=== PATIENT | male | born 1985 | race Caucasian/White ===

== ENCOUNTER 2023-03-14 04:00 | Emergency (ER) | payer MEDICAID ==
[~2023-03-14] VITALS: Ht 167.6 cm; Wt 79.4 kg
[2023-03-14 04:10] VITALS: BP_SYST 130; PULSE 92; RESP 17; TEMP 97.5; O2SAT 99
--- NOTE | 2023-03-14 04:14 | NUR ---
LEFT UPPER GUMLINE SWELLING X1 DAY, LEFT CHEEK SWELLING 10/10
--- NOTE | 2023-03-14 04:15 | NUR ---
PT BIB SELF FROM HOME, AMBULATED TO BED 7. PT A&Ox4, ABLE TO MAKE NEEDS KNOWN. PT C/O TOOTHACHE ON LEFT UPPER JAW WITH FACIAL SWELLING. PT RATES PAIN 10/10. PT STATES TAKING MOTRIN FOR PAIN. PT DENIES N/V/D, SOB/CP, AND FEVER/CHILLS. SAFETY PRECAUTIONS IN PLACE.
--- NOTE | 2023-03-14 04:16 | NUR ---
PATIENT PLACED IN ED BED 7, REPORT GIVEN TO JER HEATH
--- NOTE | 2023-03-14 04:30 | NUR ---
ER Dr. MURRAY at bedside examining patient.
[2023-03-14] MEDS ORDERED: IBUP-1969 PO (04:49)
[2023-03-14] MEDS ORDERED: AUG875 PO (04:49)
[2023-03-14 05:08] VITALS: BP_SYST 131; PULSE 90; RESP 17; TEMP 97.5; O2SAT 99
--- NOTE | 2023-03-14 05:11 | NUR ---
Patient given written and verbal discharge instructions and verbalizes understanding. ER MD discussed with patient the results and treatment provided. Patient in stable condition. ID arm band removed. Instructed to follow up with dentist, RX given Rx of given. Patient educated on pain management and to follow up with PMD. Pain Scale 8/10. Opportunity for questions provided and answered. Medication side effect fact sheet provided.
== END 2023-03-14 05:08 | disposition home or self-care (01) ==
LOC: SED 04:00
DX: K04.7 Periapical abscess without sinus (principal); R22.0 Localized swelling, mass and lump, head; Z79.899 Other long term (current) drug therapy
CPT/HCPCS: 99282